=== PATIENT | female | born 1935 | race Caucasian/White ===

== ENCOUNTER 2017-07-04 19:24 | Emergency (ER) | payer MEDICARE, BC ==
--- NOTE | 2017-07-04 19:52 | EDM.PDOC ---
ED HPI GENERAL MEDICAL PROBLEM - General Chief Complaint: Cardiovascular Problem Stated Complaint: hi blood preashure Time Seen by Provider: 07/04/17 19:51 Source of Information: Reports: Patient History Limitations: Reports: No Limitations - History of Present Illness INITIAL COMMENTS - FREE TEXT/NARRATIVE: This 81 yo female patient reports to the ED due to elevated blood pressure for at least 2 weeks, right elbow pain and an increased cough over the past 2 weeks also. The patient was seen by Dr. Irvin last week, but no changes were made to her medications. The patient reports she has not been on any antibiotics for her cough. The patient reports her right elbow has continued to be very painful since surgery. The patient reports she has been taking her blood pressure while at home with readings as high as 180/80. The patient did call to get another appointment in the clinic, but there were no appointments available until next Saturday. Onset: Gradual Duration: Week(s):, Constant Location: Reports: Chest, Upper Extremity, Right (elbow) Quality: Reports: Ache, Dull Severity: Moderate Improves with: Reports: None Worsens with: Reports: None Associated Symptoms: Reports: No Other Symptoms Right Elbow Pain Score (Numeric/FACES): 2 - Related Data Allergies Allergy/AdvReac Type Severity Reaction Status Date / Time meperidine HCl [From Demerol] Allergy Rash Verified 07/04/17 19:34 morphine Allergy Rash Verified 07/04/17 19:34 Home Meds: Home Meds Atenolol [Tenormin] 50 mg PO DAILY 06/18/13 [History] Estrogens, Conjugated [Premarin] 0.312 mg PO DAILY 06/18/13 [History] Levothyroxine Sodium 137 mcg PO DAILY 06/18/13 [History] Zolpidem [Ambien] 10 mg PO BEDTIME 06/18/13 [History] amLODIPine Besylate [Amlodipine Besylate] 5 mg PO DAILY 06/18/13 [History] DULoxetine [Cymbalta] 60 mg PO BEDTIME 06/19/13 [History] Hydrochlorothiazide 25 mg PO DAILY 11/06/15 [History] Valsartan 320 mg PO DAILY 11/06/15 [History] Ascorbate Calcium [Vitamin C] 500 mg PO DAILY 12/20/15 [History] Aspirin [Ecotrin] 81 mg PO DAILY 12/20/15 [History] Cyclobenzaprine [Flexeril] 10 mg PO TID PRN 12/20/15 [History] Ergocalciferol (Vitamin D2) [Vitamin D] 400 units PO DAILY 12/20/15 [History] Fish Oil/[place]-3 Fatty Acids [Fish Oil 1,000 MG] 2 gm PO DAILY 12/20/15 [History ] Gabapentin [Neurontin] 300 mg PO BID 12/20/15 [History] Gabapentin [Neurontin] 600 mg PO .1200 12/20/15 [History] Lactobacillus Combo No.13 [Probiotic Pearls Complete] 1 tab PO DAILY 12/20/15 [ History] Oxybutynin 5 mg PO DAILY 12/20/15 [History] Pantoprazole [ProTONIX] 40 mg PO DAILY 12/20/15 [History] Potassium Chloride [K-Tab ER] 20 meq PO DAILY 12/20/15 [History] Acetaminophen/oxyCODONE [Percocet 325-5 MG] 1 - 2 tab PO Q4H PRN #60 tablet 12/14 [Rx] Bisacodyl [Dulcolax] 10 mg RECTAL DAILY PRN #30 supp 01/04/16 [Rx] Docusate Sodium/Sennosides [Senna Plus] 2 tab PO BID #60 tablet 01/04/16 [Rx] Lactulose [Cephulac] 20 gm PO DAILY #1 bottle 01/04/16 [Rx] Past Medical History HEENT History: Reports: Cataract Cardiovascular History: Reports: Hypertension, Other (See Below) Other Cardiovascular History: Bundle branch block Gastrointestinal History: Reports: Diverticulosis, GERD 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 Musculoskeletal History: Reports: Arthritis, Neck Pain, Chronic, Osteoarthritis , Other (See Below) Other Musculoskeletal History: Cervical stenosis of spine, cervical DDD Neurological History: Reports: Neuropathy, Peripheral Other Neuro History: Cervical stenosis Psychiatric History: Reports: Anxiety, Depression Other Psychiatric History: insomnia Endocrine/Metabolic History: Reports: Hypothyroidism Oncologic (Cancer) History: Reports: Squamous Cell Carcinoma Other Oncologic History: on neck - Infectious Disease History Infectious Disease History: Reports: Chicken Pox, Measles, Mumps - Past Surgical History HEENT Surgical History: Reports: Adenoidectomy, Cataract Surgery, Tonsillectomy GI Surgical History: Reports: Cholecystectomy, Colonoscopy, EGD Female Surgical History: Reports: Section, Hysterectomy Endocrine Surgical History: Reports: Thyroidectomy Musculoskeletal Surgical History: Reports: Knee Replacement, Shoulder Surgery, Other (See Below) Other Musculoskeletal Surgeries/Procedures:: surgery for spinal stenosis, right lebow surgery Social & Family History - Family History Cardiac: Reports: Heart Failure, High Cholesterol, Hypertension, [place] - Tobacco Use Smoking Status *Q: Never Smoker Second Hand Smoke Exposure: No - Alcohol Use Days Per Week of Alcohol Use: 1 - Recreational Drug Use Recreational Drug Use: No - Living Situation & Occupation Living situation: Reports: , with Family Occupation: Retired ED ROS GENERAL - Review of Systems Review Of Systems: ROS reveals no pertinent complaints other than HPI. ED EXAM, GENERAL - Physical Exam Exam: See Below Exam Limited By: No Limitations General Appearance: Alert, WD/WN, Moderate Distress Eye Exam: Bilateral Eye: EOMI, Normal Inspection, PERRL Ears: Normal External Exam, Normal Canal, Hearing Grossly Normal, Normal TMs Nose: Normal Inspection, Normal Mucosa, No Blood Throat/Mouth: Normal Inspection, Normal Lips, Normal Teeth, Normal Gums, Normal Oropharynx, Normal Voice, No Airway Compromise Head: Atraumatic, Normocephalic Neck: Normal Inspection, Supple, Non-Tender, Full Range of Motion Respiratory/Chest: No Respiratory Distress, Lungs Clear, Normal Breath Sounds, No Accessory Muscle Use, Chest Non-Tender Cardiovascular: Normal Peripheral Pulses, Regular Rate, Rhythm, No Edema, No Gallop, No JVD, No Murmur, No Rub GI/Abdominal: Normal Bowel Sounds, Soft, Non-Tender, No Organomegaly, No Distention, No Abnormal Bruit, No Mass (Female) Exam: Deferred Rectal (Female) Exam: Deferred Back Exam: Normal Inspection, Full Range of Motion, NT Extremities: Normal Inspection, Normal Range of Motion, Non-Tender, Normal Capillary Refill, No Pedal Edema Neurological: Alert, Oriented, CN II-XII Intact, Normal Cognition, Normal Gait, Normal Reflexes, No Motor/Sensory Deficits Psychiatric: Normal Affect, Normal Mood Skin Exam: Warm Lymphatic: No Adenopathy Course - Vital Signs Last Recorded V/S: Last Vital Signs Temp 36.5 C 07/04/17 20:41 Pulse 65 07/04/17 20:41 Resp 20 07/04/17 20:41 BP 151/62 H 07/04/17 20:41 Pulse Ox 96 07/04/17 20:41 Orthostatic Blood Pressure [ 153/70 Standing] Orthostatic Blood Pressure [ 170/67 Sitting] Orthostatic Blood Pressure [ 158/65 Supine] - Orders/Labs/Meds Orders: Active Orders 24 hr Category Date Time Status EKG 12 Lead [EKG Documentation Completion] [RC] STAT Care 07/04/17 19:42 Active Labs: Laboratory Tests 07/04/17 07/04/17 Range/Units 20:00 20:00 WBC 9.4 (5.0-10.0) 10^3/uL RBC 3.86 L (4.2-5.4) 10^6/uL Hgb 12.2 (12.0-16.0) g/dL Hct 36.6 L (37.0-47.0) % MCV 94.8 (80-100) fL MCH 31.6 (27.0-34.0) pg MCHC 33.3 (33.0-35.0) g/dL Plt Count 314 (150-450) 10^3/uL Neut % (Auto) 66.5 (42.2-75.2) % Lymph % (Auto) 19.3 L (20.5-50.1) % [place] % (Auto) 10.4 H (2-8) % Eos % (Auto) 3.4 H (1.0-3.0) % Baso % (Auto) 0.4 (0.0-1.0) % Sodium 136 (135-145) mmol/L Potassium 3.3 L (3.6-5.0) mmol/L Chloride 99 L (101-111) mmol/L Carbon Dioxide 28.0 (21.0-31.0) mmol/L Anion Gap 12.3 BUN 17 (7-18) mg/dL Creatinine 0.9 (0.6-1.3) mg/dL Est Cr Clr Drug Dosing 42.33 mL/min Estimated GFR (MDRD) > 60 BUN/Creatinine Ratio 18.88 Glucose 92 (74-105) mg/dL Calcium 8.7 (8.4-10.2) mg/dl Total Bilirubin 0.5 (0.2-1.0) mg/dL AST 19 (10-42) IU/L ALT 16 (10-60) IU/L Alkaline Phosphatase 70 (42-121) IU/L Troponin I < 0.02 (0.00-0.02) ng/ml Total Protein 6.7 (6.7-8.2) g/dl Albumin 3.6 (3.2-5.5) g/dl Globulin 3.1 Albumin/Globulin Ratio 1.16 Departure - Departure Time of Disposition: 21:25 Disposition: Home, Self-Care 01 Condition: Fair Clinical Impression: Bronchitis Instructions: Acute Bronchitis, [id number] Forms: ED Department Discharge Care Plan Goals: The patient was advised of the examination, lab, EKG and x-ray results during the visit. The patient was given an oral dose of Levaquin while in the ED. The patient was discharged with a script for Levaquin (500 mg) #5 to take 1 by mouth daily for 5 days. If the patient has any additional symptoms or concerns, the patient should follow-up with her primary care facility or return to the emergency department. - My Orders Last 24 Hours: My Active Orders 07/04/17 19:42 EKG 12 Lead [EKG Documentation Completion] [RC] STAT - Assessment/Plan Last 24 Hours: My Active Orders 07/04/17 19:42 EKG 12 Lead [EKG Documentation Completion] [RC] STAT
[2017-07-04 20:27] LABS: CHLORIDE,CL 99 mmol/L (101-111); SODIUM,NA 136 mmol/L (135-145)
[2017-07-04] MEDS ORDERED: Levofloxacin 500 MG Tab PO ONE (21:24)
[2017-07-04 21:42] VITALS: BP 153/73
--- NOTE | 2017-07-08 14:44 | EKG ---
07/04/2017 - ELIEZER CANDELARIO - FINDINGS: This 12-lead EKG shows a normal sinus rhythm with a ventricular rate of 66. Right bundle-branch block. No other comments are made. [facility] /[id number]
== END 2017-07-04 21:45 | disposition home or self-care (01) ==
LOC: DL.ED 19:24
DX: J40 Bronchitis, not specified as acute or chronic (principal); I10 Essential (primary) hypertension; E03.9 Hypothyroidism, unspecified; Z79.82 Long term (current) use of aspirin; Z79.899 Other long term (current) drug therapy; Z88.5 Allergy status to narcotic agent
CPT/HCPCS: 36415; 71046; 80053; 84484; 85025; 93005; 93010; 99284; A9270; 99283

== ENCOUNTER 2018-12-13 11:12 | Emergency (ER) | payer MEDICARE, BC ==
[2018-12-13 11:37] VITALS: BP 141/64
--- NOTE | 2018-12-13 13:07 | EDM.PDOC ---
ED HPI GENERAL MEDICAL PROBLEM - General Chief Complaint: Upper Extremity Injury/Pain Stated Complaint: CAST ON ELBOW Time Seen by Provider: 12/13/18 12:55 Source of Information: Reports: Patient, RN, RN Notes Reviewed History Limitations: Reports: No Limitations - History of Present Illness INITIAL COMMENTS - FREE TEXT/NARRATIVE: Patient presents to ER with complaint of pain to right hand due to splint that has slipped down. Patient had elbow surgery at [facility] on December 04. She was to have the splint removed tomorrow, but is not placed correctly at this time and causing pain to hand and pinky on the right. States much decrease in pain following splint removal today in the ER. Onset: Gradual Duration: Getting Worse Location: Reports: Upper Extremity, Right Quality: Reports: Ache Severity: Moderate Improves with: Reports: None Worsens with: Reports: None Associated Symptoms: Reports: No Other Symptoms Right Arm Pain Score (Numeric/FACES): 8 - Related Data Allergies Allergy/AdvReac Type Severity Reaction Status Date / Time meperidine HCl [From Demerol] Allergy Rash Verified 07/04/17 19:34 morphine Allergy Rash Verified 07/04/17 19:34 Home Meds: Home Meds Atenolol [Tenormin] 50 mg PO DAILY 06/18/13 [History] Estrogens, Conjugated [Premarin] 0.312 mg PO DAILY 06/18/13 [History] Levothyroxine Sodium 137 mcg PO DAILY 06/18/13 [History] Zolpidem [Ambien] 10 mg PO BEDTIME 06/18/13 [History] amLODIPine Besylate [Amlodipine Besylate] 5 mg PO DAILY 06/18/13 [History] DULoxetine [Cymbalta] 60 mg PO BEDTIME 06/19/13 [History] Hydrochlorothiazide 25 mg PO DAILY 11/06/15 [History] Valsartan 320 mg PO DAILY 11/06/15 [History] Ascorbate Calcium [Vitamin C] 500 mg PO DAILY 12/20/15 [History] Aspirin [Ecotrin EC] 81 mg PO DAILY 12/20/15 [History] Cyclobenzaprine [Flexeril] 10 mg PO TID PRN 12/20/15 [History] Ergocalciferol (Vitamin D2) [Vitamin D] 400 units PO DAILY 12/20/15 [History] Fish Oil/[place]-3 Fatty Acids [Fish Oil 1,000 MG] 2 gm PO DAILY 12/20/15 [History ] Gabapentin [Neurontin] 300 mg PO BID 12/20/15 [History] Gabapentin [Neurontin] 600 mg PO .1200 12/20/15 [History] Lactobacillus Combo No.13 [Probiotic Pearls Complete] 1 tab PO DAILY 12/20/15 [ History] Oxybutynin 5 mg PO DAILY 12/20/15 [History] Pantoprazole [ProTONIX] 40 mg PO DAILY 12/20/15 [History] Potassium Chloride [K-Tab ER] 20 meq PO DAILY 12/20/15 [History] Acetaminophen/oxyCODONE [Percocet 325-5 MG] 1 - 2 tab PO Q4H PRN #60 tablet 12/14 [Rx] Bisacodyl [Dulcolax] 10 mg RECTAL DAILY PRN #30 supp 01/04/16 [Rx] Docusate Sodium/Sennosides [Senna Plus] 2 tab PO BID #60 tablet 01/04/16 [Rx] Lactulose [Cephulac] 20 gm PO DAILY #1 bottle 01/04/16 [Rx] Past Medical History HEENT History: Reports: Cataract, Impaired Vision Other HEENT History: wears glasses Cardiovascular History: Reports: Hypertension, Other (See Below) Other Cardiovascular History: Bundle branch block Respiratory History: Reports: Sleep Apnea Gastrointestinal History: Reports: Diverticulosis, GERD Genitourinary History: Reports: None 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: 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 Musculoskeletal History: Reports: Arthritis, Neck Pain, Chronic, Osteoarthritis , Other (See Below) Other Musculoskeletal History: Cervical stenosis of spine, cervical DDD Neurological History: Reports: Neuropathy, Peripheral Other Neuro History: Cervical stenosis Psychiatric History: Reports: Anxiety, Depression Other Psychiatric History: insomnia Endocrine/Metabolic History: Reports: Hypothyroidism Hematologic History: Reports: None Immunologic History: Reports: None Oncologic (Cancer) History: Reports: Squamous Cell Carcinoma Other Oncologic History: on neck - Infectious Disease History Infectious Disease History: Reports: Chicken Pox, Measles, Mumps - Past Surgical History HEENT Surgical History: Reports: Adenoidectomy, Cataract Surgery, Tonsillectomy GI Surgical History: Reports: Cholecystectomy, Colonoscopy, EGD Female Surgical History: Reports: Section, Hysterectomy Endocrine Surgical History: Reports: Thyroidectomy Musculoskeletal Surgical History: Reports: Knee Replacement, Shoulder Surgery, Other (See Below) Other Musculoskeletal Surgeries/Procedures:: surgery for spinal stenosis, right lebow surgery Social & Family History - Family History Cardiac: Reports: Heart Failure, High Cholesterol, Hypertension, [place] - Tobacco Use Smoking Status *Q: Never Smoker Second Hand Smoke Exposure: No - Caffeine Use Caffeine Use: Reports: Coffee, Soda - Recreational Drug Use Recreational Drug Use: No - Living Situation & Occupation Living situation: Reports: , with Family Occupation: Retired Review of Systems - Review of Systems Review Of Systems: ROS reveals no pertinent complaints other than HPI. ED EXAM, GENERAL - Physical Exam Exam: See Below Exam Limited By: No Limitations General Appearance: Alert, WD/WN, No Apparent Distress Eye Exam: Bilateral Eye: EOMI, Normal Inspection, PERRL Ears: Normal External Exam, Normal Canal, Hearing Grossly Normal, Normal TMs Nose: Normal Inspection, Normal Mucosa, No Blood Throat/Mouth: Normal Inspection, Normal Lips, Normal Teeth, Normal Gums, Normal Oropharynx, Normal Voice, No Airway Compromise Head: Atraumatic, Normocephalic Neck: Normal Inspection, Supple, Non-Tender, Full Range of Motion Respiratory/Chest: No Respiratory Distress, Lungs Clear, Normal Breath Sounds, No Accessory Muscle Use, Chest Non-Tender Cardiovascular: Normal Peripheral Pulses, Regular Rate, Rhythm, No Edema, No Gallop, No JVD, No Murmur, No Rub GI/Abdominal: Normal Bowel Sounds, Soft, Non-Tender, No Organomegaly, No Distention, No Abnormal Bruit, No Mass (Female) Exam: Deferred Rectal (Female) Exam: Deferred Back Exam: Normal Inspection, Full Range of Motion, NT Extremities: Other (decreased range of motion right arm) Neurological: Alert, Oriented, CN II-XII Intact, Normal Cognition, Normal Gait, Normal Reflexes, No Motor/Sensory Deficits Psychiatric: Normal Affect Skin Exam: Other (segundo intact in right elbow. No drainage. ) Lymphatic: No Adenopathy Course - Vital Signs Last Recorded V/S: Last Vital Signs Temp 97.8 F 12/13/18 11:30 Pulse 67 12/13/18 11:30 Resp 16 12/13/18 11:30 BP 141/64 H 12/13/18 11:30 Pulse Ox 95 12/13/18 11:30 Departure - Departure Time of Disposition: 13:05 Disposition: Home, Self-Care 01 Condition: Fair Clinical Impression: Aftercare following elbow joint replacement surgery Qualifiers: Laterality: right Qualified Code(s): Z47.1 - Aftercare following joint replacement surgery - Discharge Information *PRESCRIPTION DRUG MONITORING PROGRAM REVIEWED*: No *COPY OF PRESCRIPTION DRUG MONITORING REPORT IN PATIENT JUAN: No Forms: ED Department Discharge Additional Instructions: Little use of the arm until seen in the clinic and having the segundo out Elevate and ice the area as tolerated Continue to use your prescribed medications for pain Follow up with your primary care facility for staple removal and further problems
== END 2018-12-13 13:10 | disposition home or self-care (01) ==
LOC: DL.ED 11:12
DX: Z47.1 Aftercare following joint replacement surgery (principal); I10 Essential (primary) hypertension; E03.9 Hypothyroidism, unspecified; F41.9 Anxiety disorder, unspecified; F32.9 Major depressive disorder, single episode, unspecified; K21.9 Gastro-esophageal reflux disease without esophagitis; Z79.899 Other long term (current) drug therapy; Z88.1 Allergy status to other antibiotic agents; Z88.5 Allergy status to narcotic agent
CPT/HCPCS: 99282

== ENCOUNTER 2019-12-18 13:42 | Emergency (ER) | payer MEDICARE, BC ==
[2019-12-18 14:03] VITALS: BP 130/51; PULSE 71
--- NOTE | 2019-12-18 14:41 | CR ---
EXAMINATION: Ribs 2V w Chest Rt SEX: Female AGE: 84 years CLINICAL HISTORY: 84-year-old female right-sided "chest wall" PAIN. Interpretation: 1. Evidence of lower cervical spinal fusion and orthopedic plate right humerus. 2. Mild scoliosis and signs of mid thoracic disc disease i.e. interspace narrowing with reactive sclerosis. 3. No sign of pathologic skeletal lesion, right rib fracture, underlying lung contusion, atelectasis or dependent right pleural effusion. 4. No pneumothorax or pneumomediastinum. 5. No foreign bodies other than radiopaque skin marker (arrow). 6. Normal cardiac silhouette and pulmonary vascularity. No cephalization of flow or alveolar edema. 7. No lung mass or hilar lymphadenopathy. No lobar pneumonia. CONCLUSION: Abnormalities thoracic spine (radicular pain?). Exam otherwise unremarkable and unchanged since 04 July 2017 comparison..
--- NOTE | 2019-12-18 15:13 | EDM.PDOC ---
ED HPI GENERAL MEDICAL PROBLEM - General Chief Complaint: Respiratory Problem Stated Complaint: SOB Time Seen by Provider: 12/18/19 15:00 Source of Information: Reports: Patient History Limitations: Reports: No Limitations - History of Present Illness INITIAL COMMENTS - FREE TEXT/NARRATIVE: This 84 yo female patient reports to the ED with right sided chest wall pain since a ground level fall on Saturday. The patient has noticed increased tenderness to the right side of her chest. The patient attempted to get into the clinic but was advised to come to the ED. The patient reports she currently only has pain when she pushes on the right side of her chest or when she takes a deep breath. Onset Date: 12/14/19 Duration: Intermittent Location: Reports: Chest (right side chest wall) Severity: Moderate Improves with: Reports: None Worsens with: Reports: None Context: Reports: Activity Associated Symptoms: Reports: No Other Symptoms - Related Data Allergies Allergy/AdvReac Type Severity Reaction Status Date / Time meperidine HCl [From Demerol] Allergy Rash Verified 12/18/19 14:06 morphine Allergy Rash Verified 12/18/19 14:06 Home Meds: Home Meds Estrogens, Conjugated [Premarin] 0.312 mg PO DAILY 06/18/13 [History] Levothyroxine Sodium 137 mcg PO DAILY 06/18/13 [History] Zolpidem [Ambien] 10 mg PO BEDTIME 06/18/13 [History] amLODIPine Besylate [Amlodipine Besylate] 5 mg PO DAILY 06/18/13 [History] atenoloL [Tenormin] 50 mg PO DAILY 06/18/13 [History] DULoxetine [Cymbalta] 60 mg PO BEDTIME 06/19/13 [History] Hydrochlorothiazide 25 mg PO DAILY 11/06/15 [History] Valsartan 320 mg PO DAILY 11/06/15 [History] Ascorbate Calcium [Vitamin C] 500 mg PO DAILY 12/20/15 [History] Aspirin [Ecotrin EC] 81 mg PO DAILY 12/20/15 [History] Cyclobenzaprine [Flexeril] 10 mg PO TID PRN 12/20/15 [History] Ergocalciferol (Vitamin D2) [Vitamin D] 400 units PO DAILY 12/20/15 [History] Fish Oil/Breaks-3 Fatty Acids [Fish Oil 1,000 MG] 2 gm PO DAILY 12/20/15 [History] Gabapentin [Neurontin] 300 mg PO BID 12/20/15 [History] Gabapentin [Neurontin] 600 mg PO .1200 12/20/15 [History] Lactobacillus Combo No.13 [Probiotic Pearls Complete] 1 tab PO DAILY 12/20/15 [History] Oxybutynin 5 mg PO DAILY 12/20/15 [History] Pantoprazole [ProTONIX] 40 mg PO DAILY 12/20/15 [History] Potassium Chloride [K-Tab ER] 20 meq PO DAILY 12/20/15 [History] Acetaminophen/oxyCODONE [Percocet 325-5 MG] 1 - 2 tab PO Q4H PRN #60 tablet 01/04/16 [Rx] Bisacodyl [Dulcolax] 10 mg RECTAL DAILY PRN #30 supp 01/04/16 [Rx] Docusate Sodium/Sennosides [Senna Plus] 2 tab PO BID #60 tablet 01/04/16 [Rx] Lactulose [Cephulac] 20 gm PO DAILY #1 bottle 01/04/16 [Rx] Past Medical History HEENT History: Reports: Cataract, Impaired Vision Other HEENT History: wears glasses Cardiovascular History: Reports: Hypertension, Other (See Below) Other Cardiovascular History: Bundle branch block Respiratory History: Reports: Sleep Apnea Gastrointestinal History: Reports: Diverticulosis, GERD Genitourinary History: Reports: None 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 Musculoskeletal History: Reports: Arthritis, Neck Pain, Chronic, Osteoarthritis, Other (See Below) Other Musculoskeletal History: Cervical stenosis of spine, cervical DDD Neurological History: Reports: Neuropathy, Peripheral Other Neuro History: Cervical stenosis Psychiatric History: Reports: Anxiety, Depression Other Psychiatric History: insomnia Endocrine/Metabolic History: Reports: Hypothyroidism Hematologic History: Reports: None Immunologic History: Reports: None Oncologic (Cancer) History: Reports: Squamous Cell Carcinoma Other Oncologic History: on neck - Infectious Disease History Infectious Disease History: Reports: Chicken Pox, Measles, Mumps - Past Surgical History HEENT Surgical History: Reports: Adenoidectomy, Cataract Surgery, Tonsillectomy GI Surgical History: Reports: Cholecystectomy, Colonoscopy, EGD Female Surgical History: Reports: Section, Hysterectomy Endocrine Surgical History: Reports: Thyroidectomy Musculoskeletal Surgical History: Reports: Knee Replacement, Shoulder Surgery, Other (See Below) Other Musculoskeletal Surgeries/Procedures:: surgery for spinal stenosis, right lebow surgery Dermatological Surgical History: Reports: Other (See Below) Social & Family History - Family History Cardiac: Reports: Heart Failure, High Cholesterol, Hypertension, [place] - Tobacco Use Smoking Status *Q: Never Smoker - Caffeine Use Caffeine Use: Reports: Coffee - Recreational Drug Use Recreational Drug Use: No - Living Situation & Occupation Living situation: Reports: , with Family Occupation: Retired ED ROS GENERAL - Review of Systems Review Of Systems: Comprehensive ROS is negative, except as noted in HPI. ED EXAM, GENERAL - Physical Exam Exam: See Below Exam Limited By: No Limitations General Appearance: Alert, WD/WN, Anxious, Mild Distress Eye Exam: Bilateral Eye: EOMI, Normal Inspection, PERRL Ears: Normal External Exam, Normal Canal, Hearing Grossly Normal, Normal TMs, Other (bilateral hearing aids) Nose: Normal Inspection, Normal Mucosa, No Blood Throat/Mouth: Normal Inspection, Normal Lips, Normal Teeth, Normal Gums, Normal Oropharynx, Normal Voice, No Airway Compromise Head: Atraumatic, Normocephalic Neck: Normal Inspection, Supple, Non-Tender, Full Range of Motion, Thyromegaly Respiratory/Chest: No Respiratory Distress, Lungs Clear, No Accessory Muscle Use, Other (right sided chest wall tenderness to palpation.) Cardiovascular: Normal Peripheral Pulses, Regular Rate, Rhythm, No Edema, No Gallop, No JVD, No Murmur, No Rub GI/Abdominal: Normal Bowel Sounds, Soft, Non-Tender, No Organomegaly, No Distention, No Abnormal Bruit, No Mass (Female) Exam: Deferred Rectal (Female) Exam: Deferred Back Exam: Normal Inspection, Full Range of Motion, NT Extremities: Normal Inspection, Normal Range of Motion, Non-Tender, Normal Capillary Refill, No Pedal Edema Neurological: Alert, Oriented, CN II-XII Intact, Normal Cognition, Normal Gait, Normal Reflexes, No Motor/Sensory Deficits Psychiatric: Normal Affect, Normal Mood Skin Exam: Warm, Dry, Intact, Normal Color, No Rash Lymphatic: No Adenopathy Course - Vital Signs Last Recorded V/S: Last Vital Signs Temp 36.8 C 12/18/19 13:59 Pulse 71 12/18/19 13:59 Resp 22 H 12/18/19 13:59 BP 130/51 L 12/18/19 13:59 Pulse Ox 98 12/18/19 13:59 Departure - Departure Time of Disposition: 15:11 Disposition: Home, Self-Care 01 Condition: Fair Clinical Impression: Contusion of right chest wall Qualifiers: Encounter type: initial encounter Qualified Code(s): S20.211A - Contusion of right front wall of thorax, initial encounter - Discharge Information *PRESCRIPTION DRUG MONITORING PROGRAM REVIEWED*: Not Applicable *COPY OF PRESCRIPTION DRUG MONITORING REPORT IN PATIENT JUAN: Not Applicable Instructions: Contusion, [id number] Forms: ED Department Discharge Care Plan Goals: The patient was advised of the examination and x-ray results during the visit. The patient was encouraged to continue to rest and relax to allow her chest to heal. If the patient has any additional symptoms or concerns, the patient should either return to the emergency department or visit her primary care facility. Sepsis Event Note (ED) - Evaluation Sepsis Screening Result: No Definite Risk - Focused Exam Vital Signs: Vital Signs Temp Pulse Resp BP Pulse Ox 12/18/19 13:59 36.8 C 71 22 H 130/51 L 98
== END 2019-12-18 15:25 | disposition home or self-care (01) ==
LOC: DL.ED 13:42
DX: S20.211A Contusion of right front wall of thorax, initial encounter (principal); I10 Essential (primary) hypertension; K21.9 Gastro-esophageal reflux disease without esophagitis; G62.9 Polyneuropathy, unspecified; E03.9 Hypothyroidism, unspecified; F41.9 Anxiety disorder, unspecified; F32.9 Major depressive disorder, single episode, unspecified; M19.90 Unspecified osteoarthritis, unspecified site; Z88.5 Allergy status to narcotic agent; Z79.82 Long term (current) use of aspirin; Z79.899 Other long term (current) drug therapy; W18.30XA Fall on same level, unspecified, initial encounter
CPT/HCPCS: 71101-RT; 99282; 99284

== ENCOUNTER 2021-06-24 01:11 | Emergency (ER) | payer MEDICARE, BC ==
[2021-06-24] MEDS ORDERED: Atenolol 50 MG Tab PO ONE (01:35)
[2021-06-24] MEDS ORDERED: fentaNYL 100 MCG/2 ML SDV IVPUSH ONE ×6 (01:36→06:20)
[2021-06-24 02:09] LABS: ANION GAP 10.9 mEq/L (7-13)
[2021-06-24] MEDS ORDERED: Iopamidol 612 MG/ML 100 ML Bottle IVPUSH ONE (02:15)
[2021-06-24 04:02] VITALS: BP 153/82; PULSE 78
--- NOTE | 2021-06-24 04:05 | CT ---
PROCEDURE INFORMATION: Exam: CT Chest With Contrast; Diagnostic Exam date and time: 06/24/2021 2:48 AM Age: 85 years old Clinical indication: Other: Fall--right sided pain; Additional info: Right rib pain, upper abd pain fall TECHNIQUE: Imaging protocol: Diagnostic computed tomography of the chest with contrast. Radiation optimization: All CT scans at this facility use at least one of these dose optimization techniques: automated exposure control; mA and/or kV adjustment per patient size (includes targeted exams where dose is matched to clinical indication); or iterative reconstruction. Contrast material: [id number]; Contrast volume: 100 ml; Contrast route: INTRAVENOUS (IV); COMPARISON: No relevant prior studies available. FINDINGS: Lungs: Strandy and patchy opacities are seen in the right posterior costophrenic recess likely representing atelectasis. Gas densities are seen along the periphery of the right hemithorax anteriorly and laterally. Pleural spaces: There is a tiny right pleural effusion. There is a moderate right anterior pneumothorax. It is estimated approximately 40 %. Heart: Unremarkable. No cardiomegaly. No pericardial effusion. Aorta: Unremarkable. No aortic aneurysm. Lymph nodes: Unremarkable. No enlarged lymph nodes. Bones/joints: There is no definite evidence for rib fracture. However, there is mild deformity of the 6th rib on the right anteriorly. Soft tissues: Unremarkable. IMPRESSION: 1. Moderate right anterior pneumothorax estimated at 40%. 2. Small volume subcutaneous emphysema seen along the right anterolateral chest wall. 3. Mild irregularity of the 6th rib on the right anteriorly suggesting a nondisplaced fracture. 4. Small right pleural effusion 5. Patchy and strandy opacities in the right lung base posteriorly likely represents atelectasis. PROCEDURE INFORMATION: Exam: CT Abdomen And Pelvis With Contrast Exam date and time: 06/24/2021 2:48 AM Age: 85 years old Clinical indication: Other: Fall--right sided pain; Additional info: Right rib pain, upper abd pain fall TECHNIQUE: Imaging protocol: Computed tomography of the abdomen and pelvis with contrast. Radiation optimization: All CT scans at this facility use at least one of these dose optimization techniques: automated exposure control; mA and/or kV adjustment per patient size (includes targeted exams where dose is matched to clinical indication); or iterative reconstruction. Contrast material: [id number]; Contrast volume: 100 ml; Contrast route: INTRAVENOUS (IV); COMPARISON: No relevant prior studies available. FINDINGS: Diaphragm: There is a small hiatal hernia. Liver: Normal. No mass. Gallbladder and bile ducts: Status post cholecystectomy. Pancreas: Normal. No ductal dilation. Spleen: Normal. No splenomegaly. Adrenal glands: Normal. No mass. Kidneys and ureters: Normal. No hydronephrosis. Stomach and bowel: Unremarkable. No obstruction. No mucosal thickening. Appendix: No evidence of appendicitis. Intraperitoneal space: Unremarkable. No free air. No significant fluid collection. Vasculature: Unremarkable. No abdominal aortic aneurysm. Lymph nodes: Unremarkable. No enlarged lymph nodes. Urinary bladder: Unremarkable as visualized. Reproductive: Status post hysterectomy. Bones/joints: Unremarkable. No acute fracture. Soft tissues: Unremarkable. IMPRESSION: 1. There are no acute abdominal findings. 2. Small hiatal hernia
[2021-06-24] MEDS ORDERED: Sodium Chloride 0.9% 1,000 ML IV ONE (04:58)
[2021-06-24] MEDS ORDERED: Lidocaine 1% 30 ML SDV ONE (05:11)
--- NOTE | 2021-06-24 05:12 | CT ---
PROCEDURE INFORMATION: Exam: CT Head Without Contrast Exam date and time: 06/24/2021 4:46 AM Age: 85 years old Clinical indication: Other: Fall TECHNIQUE: Imaging protocol: Computed tomography of the head without contrast. Radiation optimization: All CT scans at this facility use at least one of these dose optimization techniques: automated exposure control; mA and/or kV adjustment per patient size (includes targeted exams where dose is matched to clinical indication); or iterative reconstruction. COMPARISON: No relevant prior studies available. FINDINGS: Brain: There is moderate diffuse cerebral atrophy. Patchy areas of hypoattenuation are seen in the deep white matter of the cerebral hemispheres bilaterally compatible with deep white matter microvascular disease. Cerebral ventricles: No ventriculomegaly. Paranasal sinuses: Visualized sinuses are unremarkable. No fluid levels. Mastoid air cells: Visualized mastoid air cells are well aerated. Bones/joints: Unremarkable. No acute fracture. Soft tissues: Unremarkable. IMPRESSION: There are no acute intracranial findings.
[2021-06-24] MEDS ORDERED: HYDROmorphone 1 MG/ML Syringe ONE ×2 (05:31→05:48)
[2021-06-24] MEDS ORDERED: HYDROmorphone 1 MG/ML Syringe IVPUSH ONE ×2 (05:35→05:49)
[2021-06-24] MEDS ORDERED: Midazolam 1 MG/ML 2 ML SDV ONE (05:51)
[2021-06-24] MEDS ORDERED: Ondansetron 4 MG/2 ML SDV IVPUSH ONE (05:55)
[2021-06-24] MEDS ORDERED: fentaNYL 100 MCG/2 ML SDV ONE ×2 (05:57→06:10)
--- NOTE | 2021-06-24 06:22 | CR ---
PROCEDURE INFORMATION: Exam: XR Chest Exam date and time: 06/24/2021 6:03 AM Age: 85 years old Clinical indication: Device placement; Ett placement (vent status); Additional info: Post chest tube TECHNIQUE: Imaging protocol: XR of the chest. Views: 1 view. COMPARISON: CT Chest Abdomen Pelvis w Cont 06/24/2021 2:48 AM FINDINGS: Lungs: Strandy opacities are present in the right lung base likely representing atelectasis. There is reinflation of the right lung. No residual pneumothorax is seen. Pleural spaces: See "Lungs" finding. Heart/Mediastinum: Unremarkable. No cardiomegaly. Bones/joints: Unremarkable. Soft tissues: Subcutaneous emphysema seen along the right lateral chest wall likely secondary to placement of a right thoracostomy tube, its tip seen in the right upper hemithorax medially. IMPRESSION: 1. Status post placement a right thoracostomy tube with its tip in the right upper hemithorax medially. 2. There is no evidence for residual pneumothorax. 3. Probable right basilar atelectasis.
--- NOTE | 2021-06-24 07:04 | EDM.PDOC ---
ED HPI GENERAL MEDICAL PROBLEM - General Chief Complaint: General Stated Complaint: AMBULANCE Time Seen by Provider: 06/24/21 01:30 Source of Information: Reports: Patient History Limitations: Reports: No Limitations - History of Present Illness INITIAL COMMENTS - FREE TEXT/NARRATIVE: ED via [facility] with c/o pain to right ribs below breast after tripping on carpet, stated tennis shoes caught on loose edging. Did not hit head. Sat up in recliner for couple hours and pain worse when trying to get to BR. No SOB. Right Chest Pain Score (Numeric/FACES): 5 - Related Data Allergies Allergy/AdvReac Type Severity Reaction Status Date / Time meperidine HCl [From Demerol] Allergy Rash Verified 06/24/21 01:28 morphine Allergy Rash Verified 06/24/21 01:28 Home Meds: Home Meds Zolpidem [Ambien] 0.5 tab PO BEDTIME PRN 06/18/13 [History] amLODIPine Besylate [Amlodipine Besylate] 10 mg PO DAILY 06/18/13 [History] atenoloL [Tenormin] 100 mg PO BID 06/18/13 [History] Potassium Chloride [K-Tab ER] 20 meq PO DAILY 12/20/15 [History] Apixaban [Eliquis] 2.5 mg PO BID 06/24/21 [History] Irbesartan/Hydrochlorothiazide [Irbesartan-Hctz 300-12.5 mg Tb] 1 each PO DAILY 06/24/21 [History] Levothyroxine 200 mcg PO DAILY 06/24/21 [History] Pantoprazole Sodium [Protonix] 20 mg PO DAILY 06/24/21 [History] Venlafaxine HCl [Venlafaxine ER] 1 cap PO DAILY 06/24/21 [History] Venlafaxine HCl [Venlafaxine ER] 1 cap PO DAILY 06/24/21 [History] buPROPion HCL [Bupropion Xl] 150 mg PO DAILY 06/24/21 [History] oxyCODONE HCl [Oxycodone HCL] 10 mg PO TID 06/24/21 [History] traZODone HCl [Trazodone HCl] 100 mg PO BEDTIME 06/24/21 [History] Past Medical History HEENT History: Reports: Cataract, Impaired Vision Other HEENT History: wears glasses Cardiovascular History: Reports: Afib, Hypertension, Other (See Below) Other Cardiovascular History: Bundle branch block Respiratory History: Reports: Sleep Apnea Gastrointestinal History: Reports: Diverticulosis, GERD Genitourinary History: Reports: None 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 MANAGER History: Reports: 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 Uterine Bleeding Musculoskeletal History: Reports: Arthritis, Neck Pain, Chronic, Osteoarthritis, Other (See Below) Other Musculoskeletal History: Cervical stenosis of spine, cervical DDD Neurological History: Reports: Neuropathy, Peripheral Other Neuro History: Cervical stenosis Psychiatric History: Reports: Anxiety, Depression Other Psychiatric History: insomnia Endocrine/Metabolic History: Reports: Hypothyroidism Hematologic History: Reports: None Immunologic History: Reports: None Oncologic (Cancer) History: Reports: Squamous Cell Carcinoma Other Oncologic History: on neck - Infectious Disease History Infectious Disease History: Reports: Chicken Pox, Measles, Mumps - Past Surgical History HEENT Surgical History: Reports: Adenoidectomy, Cataract Surgery, Tonsillectomy GI Surgical History: Reports: Appendectomy, Cholecystectomy, Colonoscopy, EGD Female Surgical History: Reports: Section, Hysterectomy Endocrine Surgical History: Reports: Thyroidectomy Neurological Surgical History: Reports: Discectomy Musculoskeletal Surgical History: Reports: Knee Replacement, Shoulder Surgery, Other (See Below) Other Musculoskeletal Surgeries/Procedures:: surgery for spinal stenosis, right lebow surgery Dermatological Surgical History: Reports: Other (See Below) Social & Family History - Family History Cardiac: Reports: Heart Failure, High Cholesterol, Hypertension, [place] - Tobacco Use Tobacco Use Status *Q: Never Tobacco User - Caffeine Use Caffeine Use: Reports: Coffee, Tea - Recreational Drug Use Recreational Drug Use: No - Living Situation & Occupation Living situation: Reports: , with Family Occupation: Retired ED ROS GENERAL - Review of Systems Review Of Systems: Comprehensive ROS is negative, except as noted in HPI. ED EXAM, GENERAL - Physical Exam Exam: See Below Exam Limited By: No Limitations General Appearance: Alert, Mild Distress Eye Exam: Bilateral Eye: EOMI, PERRL Ears: Normal External Exam, Hearing Loss Nose: Normal Inspection Throat/Mouth: Normal Inspection Head: Atraumatic, Normocephalic Neck: Normal Inspection, Non-Tender, Full Range of Motion Respiratory/Chest: Decreased Breath Sounds (right), Splinting. No: Chest Non- Tender (tender right lower anterior below bra line), Crackles, Rales, Rhonchi Cardiovascular: Normal Peripheral Pulses, Regular Rate, Rhythm GI/Abdominal: Normal Bowel Sounds, Soft Back Exam: Normal Inspection Extremities: Normal Inspection Neurological: Alert, Oriented, CN II-XII Intact, Normal Cognition, No Motor/Sensory Deficits Psychiatric: Normal Affect, Anxious Skin Exam: Warm, Dry, Intact, Normal Color ED GENERAL MEDICAL PROCEDURES - Additional/Other Procedure(s) Other (Free Text) Procedure(s): Chest tube right #28. Site prepped Betadine, skin anesthesia 1 % Lidocaine. . 2nd attempt with assistance Flight medic. Placement confirmed with xray. Tube suture 3-o silk. Attached to suction, Scant serous blood in tubing Fair tolerance. No complications, vitals stable. Course - Vital Signs Last Recorded V/S: Last Vital Signs Temp 98.1 F 06/24/21 03:35 Pulse 78 06/24/21 04:01 Resp 18 06/24/21 04:01 BP 153/82 H 06/24/21 04:01 Pulse Ox 93 L 06/24/21 04:01 - Orders/Labs/Meds Labs: Laboratory Tests 06/24/21 06/24/21 06/24/21 Range/Units 01:45 01:45 02:05 WBC 10.5 H (5.0-10.0) 10^3/uL RBC 4.00 L (4.2-5.4) 10^6/uL Hgb 12.6 (12.0-16.0) g/dL Hct 37.3 (37.0-47.0) % MCV 93.3 (80-100) fL MCH 31.5 (27.0-34.0) pg MCHC 33.8 (33.0-35.0) g/dL Plt Count 307 (150-450) 10^3/uL Neut % (Auto) 73.7 (42.2-75.2) % Lymph % (Auto) 16.0 L (20.5-50.1) % King % (Auto) 8.5 H (2-8) % Eos % (Auto) 1.5 (1.0-3.0) % Baso % (Auto) 0.3 (0.0-1.0) % Sodium 139 (136-145) mmol/L Potassium 2.9 L (3.5-5.1) mmol/L Chloride 101 (98-107) mmol/L Carbon Dioxide 30 (21-32) mmol/L Anion Gap 10.9 (7-13) mEq/L BUN 19 H (7-18) mg/dL Creatinine 0.92 (0.55-1.02) mg/dL Est Cr Clr Drug Dosing 41.85 mL/min Estimated GFR (MDRD) 58 BUN/Creatinine Ratio 20.7 (No establ ref range) Glucose 101 H (70-99) mg/dL Calcium 8.2 L (8.5-10.1) mg/dL Total Bilirubin 0.2 (0.2-1.0) mg/dL AST 15 (15-37) U/L ALT 21 (14-59) U/L Alkaline Phosphatase 81 (46-116) U/L Total Protein 6.0 L (6.4-8.2) g/dL Albumin 3.2 L (3.4-5.0) g/dL Globulin 2.8 Albumin/Globulin Ratio 1.14 Amylase 21 L (25-115) U/L Lipase 17 L (73-393) U/L Urine Color Yellow (YELLOW) Urine Appearance Clear (CLEAR) Urine pH 6.5 (5.0-9.0) Ur Specific Jal 1.025 (1.005-1.030) Urine Protein Negative (NEGATIVE) Urine Glucose (UA) Negative (NEGATIVE) Urine Ketones Negative (NEGATIVE) Urine Occult Blood Negative (NEGATIVE) Urine Nitrite Negative (NEGATIVE) Urine Bilirubin Negative (NEGATIVE) Urine Urobilinogen 0.2 (0.2-1.0) mg/dL Ur Leukocyte Esterase Negative (NEGATIVE) Meds: Medications Discontinued Medications Generic Name Dose Route Start Last Admin Trade Name Pierceq PRN Reason Stop Dose Admin Atenolol 100 mg 06/24/21 01:35 06/24/21 01:56 Atenolol 50 Mg Tab PO 06/24/21 01:36 100 mg ONETIME ONE Administration Fentanyl 25 mcg 06/24/21 01:36 06/24/21 02:12 Fentanyl 100 Mcg/2 Ml Sdv IVPUSH 06/24/21 01:37 25 mcg ONETIME ONE Administration Protocol Fentanyl 50 mcg 06/24/21 04:58 06/24/21 05:19 Fentanyl 100 Mcg/2 Ml Sdv IVPUSH 06/24/21 04:59 50 mcg ONETIME ONE Administration Protocol Fentanyl Confirm 06/24/21 05:57 06/24/21 07:18 Fentanyl 100 Mcg/2 Ml Sdv Administered 06/24/21 05:58 Not Given Dose 100 mcg .ROUTE .STK-MED ONE Fentanyl Confirm 06/24/21 06:10 06/24/21 07:23 Fentanyl 100 Mcg/2 Ml Sdv Administered 06/24/21 06:11 Not Given Dose 100 mcg .ROUTE .STK-MED ONE Fentanyl 50 mcg 06/24/21 06:00 06/24/21 06:00 Fentanyl 100 Mcg/2 Ml Sdv IVPUSH 06/24/21 06:01 50 mcg ONETIME ONE Administration Protocol Fentanyl 50 mcg 06/24/21 06:08 06/24/21 06:08 Fentanyl 100 Mcg/2 Ml Sdv IVPUSH 06/24/21 06:09 50 mcg ONETIME ONE Administration Protocol Fentanyl 50 mcg 06/24/21 06:15 06/24/21 06:15 Fentanyl 100 Mcg/2 Ml Sdv IVPUSH 06/24/21 06:16 50 mcg ONETIME ONE Administration Protocol Fentanyl 50 mcg 06/24/21 06:20 06/24/21 06:20 Fentanyl 100 Mcg/2 Ml Sdv IVPUSH 06/24/21 06:21 50 mcg ONETIME ONE Administration Protocol Hydromorphone HCl Confirm 06/24/21 05:31 06/24/21 05:37 Hydromorphone 1 Mg/Ml Syringe Administered 06/24/21 05:32 Not Given Dose 1 mg .ROUTE .STK-MED ONE Hydromorphone HCl 1 mg 06/24/21 05:35 06/24/21 05:36 Hydromorphone 1 Mg/Ml Syringe IVPUSH 06/24/21 05:36 1 mg ONETIME ONE Administration Hydromorphone HCl 1 mg 06/24/21 05:49 06/24/21 05:48 Hydromorphone 1 Mg/Ml Syringe IVPUSH 06/24/21 05:50 1 mg ONETIME ONE Administration Hydromorphone HCl Confirm 06/24/21 05:48 06/24/21 06:31 Hydromorphone 1 Mg/Ml Syringe Administered 06/24/21 05:49 Not Given Dose 1 mg .ROUTE .STK-MED ONE Sodium Chloride 1,000 mls @ 50 mls/hr 06/24/21 04:58 06/24/21 05:19 Normal Saline IV 06/25/21 00:57 50 mls/hr .BOLUS ONE Administration Iopamidol 100 ml 06/24/21 02:15 06/24/21 02:30 Iopamidol 612 Mg/Ml 100 Ml Bottle IVPUSH 06/24/21 02:16 100 ml ONETIME ONE Administration Lidocaine HCl Confirm 06/24/21 05:11 06/24/21 05:19 Lidocaine 1% 30 Ml Sdv Administered 06/24/21 05:12 30 ml Dose Administration 30 ml .ROUTE .STK-MED ONE Midazolam HCl Confirm 06/24/21 05:51 06/24/21 05:53 Midazolam 1 Mg/Ml 2 Ml Sdv Administered 06/24/21 05:52 2 mg Dose Administration 2 mg .ROUTE .STK-MED ONE Ondansetron HCl 4 mg 06/24/21 05:55 06/24/21 05:54 Ondansetron 4 Mg/2 Ml Sdv IVPUSH 06/24/21 05:56 4 mg ONETIME ONE Administration Departure - Departure Time of Disposition: 06:50 Disposition: DC/Tfer to Acute Hospital 02 Condition: Fair Clinical Impression: Pneumothorax on right Fall Qualifiers: Encounter type: initial encounter Qualified Code(s): W19.XXXA - Unspecified fall, initial encounter Rib fracture Qualifiers: Encounter type: initial encounter Rib fracture type: single rib Fracture type: closed Laterality: right Qualified Code(s): S22.31XA - Fracture of one rib, right side, initial encounter for closed fracture - Discharge Information *PRESCRIPTION DRUG MONITORING PROGRAM REVIEWED*: No *COPY OF PRESCRIPTION DRUG MONITORING REPORT IN PATIENT JUAN: No Referrals: Abhihsek Irvin MD [Primary Care Provider] - Forms: ED Department Discharge Sepsis Event Note (ED) - Evaluation Sepsis Screening Result: No Definite Risk
== END 2021-06-24 06:52 ==
LOC: DL.ED 01:11
DX: S27.0XXA Traumatic pneumothorax, initial encounter (principal); S22.31XA Fracture of one rib, right side, initial encounter for closed fracture; I48.91 Unspecified atrial fibrillation; I10 Essential (primary) hypertension; K21.9 Gastro-esophageal reflux disease without esophagitis; E03.9 Hypothyroidism, unspecified; G62.9 Polyneuropathy, unspecified; Z88.5 Allergy status to narcotic agent; Z79.899 Other long term (current) drug therapy; Z79.01 Long term (current) use of anticoagulants; W01.0XXA Fall on same level from slipping, tripping and stumbling without subsequent striking against object, initial encounter
CPT/HCPCS: 32551; 36415; 70450; 71045; 71260; 74177; 80053; 81003; 82150; 83690; 85025; 96374; 96375; 96376; 99285; A9270; J1170; J2250; J2405; J3010; J7030; Q9967

== ENCOUNTER 2023-07-15 19:53 | Emergency (ER) | payer MEDICARE, BC ==
[2023-07-15] MEDS ORDERED: Sodium Chloride 0.9% 10 ML Syringe FLUSH PRN (20:07)
[2023-07-15 20:19] LABS: BASOPHILS PERCENT AUTO 0.3 % (0.0-1.0); HEMATOCRIT 44.4 % (37.0-47.0); HEMOGLOBIN 14.8 g/dL (12.0-16.0); LYMPHOCYTES PERCENT AUTO 30.7 % (20.5-50.1); MEAN CORPUSCULAR HEMOGLOBIN 31.8 pg (27.0-34.0); MEAN CORPUSCULAR HGB CONC 33.3 g/dL (33.0-35.0); MEAN CORPUSCULAR VOLUME 95.3 fL (80-100); MONOCYTES PERCENT AUTO 9.2 % (2-8); NEUTROPHILS PERCENT AUTO 55.8 % (42.2-75.2); PLATELET COUNT,PLT 359 10^3/uL (150-450); RED BLOOD CELL COUNT 4.66 10^6/uL (4.2-5.4); WHITE BLOOD CELL COUNT,WBC 8.7 10^3/uL (5.0-10.0)
[2023-07-15 20:22] VITALS: BP 151/73; PULSE 79
[2023-07-15 20:32] LABS: INR 0.9 (0.9-1.2); PROTHROMBIN TIME 8.9 SEC (9.0-12.0); PTT,PARTIAL THROMBOPLSTIN TIME 28.3 SEC (22.0-34.0)
[2023-07-15 20:37] LABS: A/G RATIO 1.2; ANION GAP 12.5 mEq/L (7-13); BILIRUBIN TOTAL 0.5 mg/dL (0.2-1.0); BUN/CREATININE RATIO 13.7 (No establ ref range); CALCIUM 8.9 mg/dL (8.5-10.1); CREATININE 0.95 mg/dL (0.55-1.02); EST CRCL DRUG DOSING (CG) 34.51 mL/min; MAGNESIUM 2.1 mg/dL (1.8-2.4); POTASSIUM,K 3.5 mmol/L (3.5-5.1); PROTEIN TOTAL,TP 7.3 g/dL (6.4-8.2)
[2023-07-15 20:58] LABS: CORONAVIRUS COVID-19 NAA NEGATIVE (NEGATIVE); INFLUENZA A NAA NEGATIVE (NEGATIVE); INFLUENZA B NAA NEGATIVE (NEGATIVE); RESPIRATORY SYNCYTIAL VIR NAA NEGATIVE (NEGATIVE)
== END 2023-07-15 21:35 | disposition home or self-care (01) ==
LOC: DL.ED 19:53
DX: R07.89 Other chest pain (principal); I10 Essential (primary) hypertension; K21.9 Gastro-esophageal reflux disease without esophagitis; E03.9 Hypothyroidism, unspecified; Z20.822 Contact with and (suspected) exposure to COVID-19; Z79.01 Long term (current) use of anticoagulants; Z79.899 Other long term (current) drug therapy; Z88.5 Allergy status to narcotic agent; Z88.8 Allergy status to other drugs, medicaments and biological substances
CPT/HCPCS: 0241U; 36415; 71045; 80053; 83735; 84484; 85025; 85610; 85730; 93005; 93010; 99284; 99285; J3490

== ENCOUNTER 2023-12-28 16:02 | Emergency (ER) | payer MEDICARE, BC ==
[2023-12-28 16:31] LABS: BASOPHILS PERCENT AUTO 0.3 % (0.0-1.0); EOSINOPHILS PERCENT AUTO 2.7 % (1.0-3.0); HEMATOCRIT 42.5 % (37.0-47.0); HEMOGLOBIN 14.1 g/dL (12.0-16.0); LYMPHOCYTES PERCENT AUTO 23.1 % (20.5-50.1); MEAN CORPUSCULAR HGB CONC 33.2 g/dL (33.0-35.0); MEAN CORPUSCULAR VOLUME 96.4 fL (80-100); MONOCYTES PERCENT AUTO 13.9 % (2-8); PLATELET COUNT,PLT 326 10^3/uL (150-450); RED BLOOD CELL COUNT 4.41 10^6/uL (4.2-5.4); WHITE BLOOD CELL COUNT,WBC 9.4 10^3/uL (5.0-10.0)
[2023-12-28 16:32] VITALS: BP 134/62; PULSE 72
[2023-12-28 16:45] LABS: A/G RATIO 1.2; ALBUMIN 3.5 g/dL (3.4-5.0); ANION GAP 9.2 mEq/L (7-13); BILIRUBIN TOTAL 0.5 mg/dL (0.2-1.0); BUN/CREATININE RATIO 12.6 (No establ ref range); CALCIUM 8.6 mg/dL (8.5-10.1); CREATININE 1.03 mg/dL (0.55-1.02); EST CRCL DRUG DOSING (CG) 32.6 mL/min; POTASSIUM,K 4.2 mmol/L (3.5-5.1); PROTEIN TOTAL,TP 6.4 g/dL (6.4-8.2)
== END 2023-12-28 18:36 | disposition home or self-care (01) ==
LOC: DL.ED 16:02
DX: S16.1XXA Strain of muscle, fascia and tendon at neck level, initial encounter (principal); S39.012A Strain of muscle, fascia and tendon of lower back, initial encounter; S30.0XXA Contusion of lower back and pelvis, initial encounter; S70.02XA Contusion of left hip, initial encounter; I10 Essential (primary) hypertension; K21.9 Gastro-esophageal reflux disease without esophagitis; E03.9 Hypothyroidism, unspecified; Z90.49 Acquired absence of other specified parts of digestive tract; Z79.899 Other long term (current) drug therapy; Z88.5 Allergy status to narcotic agent; Z88.8 Allergy status to other drugs, medicaments and biological substances; W19.XXXA Unspecified fall, initial encounter
CPT/HCPCS: 36415; 70450; 72125; 72131; 72192; 80053; 83735; 84443; 84484; 85025; 93005; 93010; 99284

== ENCOUNTER 2024-02-13 00:12 | Emergency (ER) | payer MEDICARE, BC ==
[2024-02-13] MEDS: Iopamidol 612 MG/ML 100 ML Bottle IVPUSH ONE (00:36)
[2024-02-13 00:55] LABS: BASOPHILS PERCENT AUTO 0.3 % (0.0-1.0); EOSINOPHILS PERCENT AUTO 1.6 % (1.0-3.0); HEMATOCRIT 39.6 % (37.0-47.0); HEMOGLOBIN 13.3 g/dL (12.0-16.0); LYMPHOCYTES PERCENT AUTO 12.5 % (20.5-50.1); MEAN CORPUSCULAR HEMOGLOBIN 32.2 pg (27.0-34.0); MEAN CORPUSCULAR HGB CONC 33.6 g/dL (33.0-35.0); MEAN CORPUSCULAR VOLUME 95.9 fL (80-100); MONOCYTES PERCENT AUTO 9.9 % (2-8); NEUTROPHILS PERCENT AUTO 75.7 % (42.2-75.2); PLATELET COUNT,PLT 329 10^3/uL (150-450); RED BLOOD CELL COUNT 4.13 10^6/uL (4.2-5.4)
[2024-02-13] MEDS: cefTRIAXone 1 GM Vial IVPUSH ONE (00:55)
[2024-02-13] MEDS: Diphtheria,Pertussis(Acell),Tetanus Vaccine 0.5 ML Syringe IM ONE (00:55)
[2024-02-13 01:17] LABS: APPEARANCE,URINE CLEAR (CLEAR); BILIRUBIN,URINE NEGATIVE (NEGATIVE); COLOR,URINE YELLOW (YELLOW); GLUCOSE,URINE NEGATIVE (NEGATIVE); KETONES,URINE NEGATIVE (NEGATIVE); LEUKOCYTE ESTERASE,URINE NEGATIVE (NEGATIVE); NITRITE,URINE NEGATIVE (NEGATIVE); OCCULT BLOOD,URINE NEGATIVE (NEGATIVE); PROTEIN,URINE NEGATIVE (NEGATIVE); UROBILINOGEN,URINE 0.2 mg/dL (0.2-1.0)
[2024-02-13 01:24] LABS: A/G RATIO 1.3; ALANINE AMINOTRANSFERASE,ALT 24 U/L (14-59); ALBUMIN 3.5 g/dL (3.4-5.0); ALKALINE PHOSPHATASE 68 U/L (46-116); ANION GAP 10.7 mEq/L (7-13); ASPARTATE AMNIOTRANSFERASE,AST 18 U/L (15-37); BILIRUBIN TOTAL 0.5 mg/dL (0.2-1.0); BLOOD UREA NITROGEN,BUN 16 mg/dL (7-18); CALCIUM 8.8 mg/dL (8.5-10.1); CARBON DIOXIDE,CO2 29 mmol/L (21-32); CHLORIDE,CL 102 mmol/L (98-107); CREATININE 0.94 mg/dL (0.55-1.02); GLUCOSE RANDOM 102 mg/dL (70-99); POTASSIUM,K 3.7 mmol/L (3.5-5.1); PROTEIN TOTAL,TP 6.1 g/dL (6.4-8.2); SODIUM,NA 138 mmol/L (136-145)
[2024-02-13 01:25] LABS: ESTIMATED GFR 58 mL/min (>=60)
[2024-02-13] MEDS: Sodium Chloride 0.9% 1,000 ML IV ONE (01:42)
[2024-02-13] MEDS: Acetaminophen 325 MG Tab PO ONE (03:09)
== END 2024-02-13 05:05 | disposition home or self-care (01) ==
LOC: DL.ED 00:12
DX: S09.90XA Unspecified injury of head, initial encounter (principal); E86.9 Volume depletion, unspecified; M25.551 Pain in right hip; I10 Essential (primary) hypertension; I48.91 Unspecified atrial fibrillation; K21.9 Gastro-esophageal reflux disease without esophagitis; E03.9 Hypothyroidism, unspecified; Z90.49 Acquired absence of other specified parts of digestive tract; Z88.8 Allergy status to other drugs, medicaments and biological substances; Z88.5 Allergy status to narcotic agent; Z79.01 Long term (current) use of anticoagulants; Z79.899 Other long term (current) drug therapy; Z23 Encounter for immunization; Z79.890 Hormone replacement therapy; W18.39XA Other fall on same level, initial encounter; Y92.009 Unspecified place in unspecified non-institutional (private) residence as the place of occurrence of the external cause
CPT/HCPCS: 36415; 70450; 71260; 72125; 74177; 80053; 81003; 82947; 83735; 84484; 85025; 90471; 90715; 96361; 96374; 99284; A9270; J0696; J7030; Q9967

== ENCOUNTER 2024-08-09 16:22 | Emergency (ER) | payer MEDICARE, BC ==
[2024-08-09] MEDS: Iopamidol 612 MG/ML 100 ML Bottle IVPUSH ONE (16:49)
[2024-08-09 16:57] LABS: BASOPHILS PERCENT AUTO 0.4 % (0.0-1.0); EOSINOPHILS PERCENT AUTO 4.1 % (1.0-3.0); HEMATOCRIT 40.8 % (37.0-47.0); HEMOGLOBIN 13.6 g/dL (12.0-16.0); LYMPHOCYTES PERCENT AUTO 20.7 % (20.5-50.1); MEAN CORPUSCULAR HEMOGLOBIN 31.6 pg (27.0-34.0); MEAN CORPUSCULAR HGB CONC 33.3 g/dL (33.0-35.0); MEAN CORPUSCULAR VOLUME 94.9 fL (80-100); MONOCYTES PERCENT AUTO 12.3 % (2-8); NEUTROPHILS PERCENT AUTO 62.5 % (42.2-75.2); PLATELET COUNT,PLT 282 10^3/uL (150-450); WHITE BLOOD CELL COUNT,WBC 8.1 10^3/uL (5.0-10.0)
[2024-08-09 16:59] LABS: APPEARANCE,URINE CLEAR (CLEAR); BILIRUBIN,URINE NEGATIVE (NEGATIVE); COLOR,URINE YELLOW (YELLOW); GLUCOSE,URINE NEGATIVE (NEGATIVE); KETONES,URINE NEGATIVE (NEGATIVE); LEUKOCYTE ESTERASE,URINE NEGATIVE (NEGATIVE); NITRITE,URINE NEGATIVE (NEGATIVE); OCCULT BLOOD,URINE NEGATIVE (NEGATIVE); PROTEIN,URINE NEGATIVE (NEGATIVE); UROBILINOGEN,URINE 0.2 mg/dL (0.2-1.0)
[2024-08-09 17:00] VITALS: BP 161/72; PULSE 94
[2024-08-09 17:19] LABS: A/G RATIO 1.1; ALANINE AMINOTRANSFERASE,ALT 24 U/L (14-59); ALBUMIN 3.4 g/dL (3.4-5.0); ALKALINE PHOSPHATASE 96 U/L (46-116); ANION GAP 11.7 mEq/L (7-13); ASPARTATE AMNIOTRANSFERASE,AST 14 U/L (15-37); BILIRUBIN TOTAL 0.2 mg/dL (0.2-1.0); BLOOD UREA NITROGEN,BUN 15 mg/dL (7-18); BUN/CREATININE RATIO 13.2 (No establ ref range); CALCIUM 8.8 mg/dL (8.5-10.1); CARBON DIOXIDE,CO2 27 mmol/L (21-32); CHLORIDE,CL 104 mmol/L (98-107); CREATININE 1.14 mg/dL (0.55-1.02); ESTIMATED GFR 46 mL/min (>=60); GLUCOSE RANDOM 93 mg/dL (70-99); POTASSIUM,K 3.7 mmol/L (3.5-5.1); PROTEIN TOTAL,TP 6.4 g/dL (6.4-8.2); SODIUM,NA 139 mmol/L (136-145)
[2024-08-09] MEDS: Acetaminophen 325 MG Tab PO ONE (17:20)
[2024-08-09 18:57] LABS: INR 0.9 (0.9-1.2); PROTHROMBIN TIME 9.6 SEC (9.0-12.0)
[2024-08-09] MEDS: Tranexamic Acid 1,000 MG in Sodium Chloride 0.9% 100 ML IV ONE (19:03)
[2024-08-09] MEDS: Ketamine HCl in 0.9 % NaCl 20 MG/2 ML Syringe IV SCH (19:45)
[2024-08-09] MEDS: Ketamine 500 mg/10 ML MDV ONE (19:58)
== END 2024-08-09 20:03 ==
LOC: DL.ED 16:22
DX: S22.41XA Multiple fractures of ribs, right side, initial encounter for closed fracture (principal); S32.009A Unspecified fracture of unspecified lumbar vertebra, initial encounter for closed fracture; S70.02XA Contusion of left hip, initial encounter; N17.9 Acute kidney failure, unspecified; I10 Essential (primary) hypertension; E03.9 Hypothyroidism, unspecified; K21.9 Gastro-esophageal reflux disease without esophagitis; Z88.5 Allergy status to narcotic agent; Z88.8 Allergy status to other drugs, medicaments and biological substances; Z79.899 Other long term (current) drug therapy; Z79.890 Hormone replacement therapy; Z90.49 Acquired absence of other specified parts of digestive tract; W00.0XXA Fall on same level due to ice and snow, initial encounter; Y93.01 Activity, walking, marching and hiking
CPT/HCPCS: 36415; 70450; 71260; 72125; 74177; 80053; 81003; 85025; 85610; 93005; 93010; 96365; 96375; 99285; A9270; Q9967

== ENCOUNTER 2024-11-09 19:54 | Emergency (ER) | payer MEDICARE, BC ==
[2024-11-09 20:23] VITALS: BP 159/81; PULSE 79
[2024-11-09] MEDS ORDERED: Diphtheria,Pertussis(Acell),Tetanus Vaccine 0.5 ML Syringe IM ONE (21:44)
[2024-11-09] MEDS: Lidocaine 1% 5 ML VIAL INJECT ONE (21:48)
[2024-11-09] MEDS: Bacitracin Oint 1 GM U/D Packet TOP ONE (21:48)
== END 2024-11-09 22:43 | disposition home or self-care (01) ==
LOC: DL.ED 19:54
DX: S62.525A Nondisplaced fracture of distal phalanx of left thumb, initial encounter for closed fracture (principal); S01.81XA Laceration without foreign body of other part of head, initial encounter; I10 Essential (primary) hypertension; K21.9 Gastro-esophageal reflux disease without esophagitis; Z90.49 Acquired absence of other specified parts of digestive tract; Z79.899 Other long term (current) drug therapy; Z88.5 Allergy status to narcotic agent; Z88.8 Allergy status to other drugs, medicaments and biological substances; W17.89XA Other fall from one level to another, initial encounter
CPT/HCPCS: 12011; 70450; 72125; 73140; 99283; A9270; J2003